=== PATIENT | female | born 1980 | race Caucasian/White ===

== ENCOUNTER → 2016-11-04 | Outpatient (CLI) | payer OTHER ==
[~2016-11-04] MED LIST: CENTRUM SILVER1 EAC4 PO; HYDROCODONE-AP1 EAC6 PO; IBUPROFEN 200200 M1 PO
== END ==
LOC: CAT 16:09
DX: R10.11 Right upper quadrant pain (principal); K44.9 Diaphragmatic hernia without obstruction or gangrene; R16.2 Hepatomegaly with splenomegaly, not elsewhere classified

== ENCOUNTER 2017-03-30 05:26 | Inpatient (IN) | payer OTHER ==
[~2017-03-30] VITALS: Ht 160 cm; Wt 113.4 kg
--- NOTE | ~2017-03-30 | O ---
[facility] [place] [address] OPERATIVE REPORT Name: CURRENT,ISAIAH PERSAUD Room #: 439-P [facility] M.R.#: [id number] Admission: 03/30/17 Attend Phys: Beto Crockett MD, Discharge: 03/31/17 Date of : 84 Report #: [id number] THIS REPORT FOR: //name// CC: Beto Arredondo DATE OF SERVICE: 03/30/2017 PREOPERATIVE DIAGNOSES: 1. Type 3 paraesophageal hernia. 2. Gastroesophageal reflux disease. 3. Hypertension. 4. Obesity. POSTOPERATIVE DIAGNOSES: 1. Type 4 paraesophageal hernia. 2. Gastroesophageal reflux disease. 3. Hypertension. 4. Obesity. PROCEDURES PERFORMED: 1. Laparoscopic repair of a type 4 paraesophageal hernia with cruroplasty and biomesh buttressing. 2. Laparoscopic placement of a LINX antireflux device. 3. Thorough esophagogastroduodenoscopy (EGD). SURGEON: Beto Crockett M.D. AGRI BUSINESS AGENT: John Lock M.D. ANESTHESIA: General endotracheal anesthesia. ESTIMATED BLOOD LOSS: Minimal (less than 10 mL). COMPLICATIONS: None appreciated. SPECIMENS: None. INDICATIONS: The patient is a 36-year-old female, with significant complaints of longstanding epigastric abdominal pain with dysphagia type symptoms, who has already undergone a laparoscopic cholecystectomy for biliary dyskinesia. As a part of the patient's workup, she underwent a CT scan of the abdomen and pelvis which showed a moderately large type 3 paraesophageal hernia, containing half of her stomach within the distal mediastinum. The patient has since undergone a thorough preoperative workup including an upper GI swallow and EGD with Soto pH study, as well as esophageal manometry, which all showed [facility] [address] [place] [address] OPERATIVE REPORT Name: CURRENT,ISAIAH PERSAUD Room #: 439-P [facility] M.R.#: [id number] Admission: 03/30/17 Attend Phys: Beto Crockett MD, Discharge: 03/31/17 Date of : 84 Report #: [id number] normal esophageal motility, as well as the presence of a large type 3 paraesophageal hernia and significant GERD. As such, indication was for definitive repair today and placement of the LINX antireflux device for symptomatic control of her medically recalcitrant disease process. DESCRIPTION OF PROCEDURE: After explaining the risks, benefits, and alternatives of the procedure with the patient in detail in the preoperative holding area and obtaining written consent, the patient was brought to the operating room and placed supine on the operating room table. After conducting a thorough timeout procedure verifying correct patient and procedure, the patient was given general endotracheal anesthesia. Once adequate anesthesia was obtained, her SCDs were hooked up to the pneumatic compression device. She was given a preoperative dose of antibiotics in line with the SCIP protocol. The patient's abdomen was prepped and draped in the standard surgical sterile fashion after positioning her in the low lithotomy position with her legs in the Yellofin stirrups. I began the procedure by anesthetizing the skin in the right upper quadrant and midclavicular line in a subcostal location with 5 mL of 0.5% Marcaine with epinephrine, and I had created a small skin lele using #15 bladed scalpel. I utilized the 5 mm Visiport which was placed over 0 degree 5 mm laparoscope, to gain entry into the abdomen through this incision site. Once intra-abdominal access was verified visually, the obturator for the trocar and laparoscope were both removed, and the abdomen was insufflated to 15 mmHg using carbon dioxide gas. The laparoscope was changed to a 5-mm 30-degree laparoscope, which was reintroduced through this trocar. The entire abdomen was evaluated to ensure no injury upon entry, and no pathology outside of the hiatal hernia in question. We saw evidence of half the stomach in the distal mediastinum, as well as omentum contained within that region, consistent with a type 4 paraesophageal hernia. I now placed three working trocars in the patient's left abdomen. A 5 mm port was placed 2 cm superior to the umbilicus and 2 cm to the patient's left, a 12 mm port was placed 5 cm lateral to that, and a final 5 mm port was placed in the extreme left lateral flank. All three additional ports were placed under direct vision, after anesthetizing the skin at each location with 5 mL of 0.5% Marcaine with epinephrine, and I had created appropriately sized skin nicks using #15 bladed scalpel. The laparoscope was changed to a 5 mm port, just to the left of the patient's umbilicus, and she was placed in steep reverse Trendelenburg position. I now placed a Maru liver retractor in the subxiphoid location by anesthetizing the skin at that location with 5 mL of 0.5% Marcaine with epinephrine, and I had created small skin lele using #15 bladed scalpel. I used the obturator from the 5 mm port to penetrate the fascia at this level and then maneuvered the Maru through this defect, where it was positioned up under the left lobe of the liver and was held up against the posterior aspect of the anterior abdominal wall. This was fixed into position at this location using the [employer] Captain device to stabilize it. We now had complete access to the stomach and hiatal region. Gentle manual traction was now placed in an inferior fashion on the stomach to deliver this back into the intraabdominal location. In addition, a large amount of omentum [facility] [address] [place] [address] OPERATIVE REPORT Name: CURRENT,ISAIAH PERSAUD Room #: 439-P [facility] M.R.#: [id number] Admission: 03/30/17 Attend Phys: Beto Crockett MD, Discharge: 03/31/17 Date of : 84 Report #: [id number] was contained within the mediastinum, consistent with a type 4 paraesophageal hernia. Once all of this was reduced back into the abdomen, I opened the pars flaccida using Harmonic scalpel and was able to identify the base of the right rajan. I dissected up the right rajan anteriorly with Harmonic scalpel for hemostasis. The stomach was then retracted to the patient's right lateral aspect, and I dissected up the left rajan in similar fashion to all the way, staying well away from all gastric and esophageal tissues to prevent injury from thermal burn. Once I had dissected up the left rajan, the stomach was retracted back to the left side, and was able to create a retroesophageal passage way from the patient's right to left side, using a laparoscopic grasper. A Shravan drain was pulled through this window and the tails of this Shravan were mated anteriorly, which would then be used as a handle to avoid actual grasping of any the gastric or esophageal tissues to prevent injury. I now carried out an extensive mediastinal dissection, taking down all of the mediastinal adhesions with Harmonic scalpel for hemostasis. All of these adhesions were attempting to cause the stomach and esophagus to retract back up into the mediastinum. Once these were all taken down, we had 3 cm of intra-abdominal esophagus that was not under tension or traction to attempt to retract back into the mediastinum. The esophageal tissues were elevated anteriorly, and I now proceeded to repair the hiatal defect. This cruroplasty was performed using several sutures of 0 Surgidac on the EndoStitch device posteriorly to bring the crural pillars closed to recreate the slit valve of the lower esophageal sphincter complex without creating undue tightness. Once we are satisfied with this repair, I proceeded to utilize a piece of Strattice biologic mesh that measured 6 x 8 cm in dimension to act as a buttress for this repair. After appropriate hydrogen, a U-shaped notch was cut out of the mesh, and it was maneuvered through the retroesophageal window, where it was then anchored to the crura using sutures of 0 Surgidac, as well as 10 mL of Tisseel on the Duplospray device. This was accomplished by folding down the corners of the mesh and spraying the Tisseel directly on the diaphragm, and then replacing the mesh into position. This gave us an excellently oriented buttressed repair with biologic mesh of our cruroplasty for the hiatal repair. We now turned our attention to placement of the LINX antireflux device. The Shravan drain was removed and a window was made between the posterior vagus nerve and the esophagus using laparoscopic graspers for blunt dissection. The [place] drain was then pulled through this window, and the laparoscopic sizing tool, was now utilized in standard fashion, which identified size 15 device as the appropriate size for this patient. When it was sized, we ensured ourselves that there were no NG tubes or other devices within the esophagus, and there was no traction being placed on the esophagus from the Shravan drain whatsoever. I then placed the appropriate size device in to the abdomen, which was then passed through the window posterior to the esophagus, but anterior to the posterior vagus nerve and then proceeded to mate the ends of the LINX device to complete the bracelet. This was done by ensuring that one window was present in the clasped beads as per standard protocol. A confirmatory tug was performed, and we are satisfactory with the result. The sutures from the device were then cut and removed entirely, and the [facility] [address] [place] [address] OPERATIVE REPORT Name: CURRENT,ISAIAH PERSAUD Room #: 439-P [facility] M.R.#: [id number] Admission: 03/30/17 Attend Phys: Beto Crockett MD, Discharge: 03/31/17 Date of : 84 Report #: [id number] drain was removed. I now proceeded to perform a thorough EGD, utilizing the SpeedDaten upper endoscope. We were able to intubate the oropharynx, which was traversed down the straight esophagus, past the hiatal repair, and easily intubating the gastric lumen through the LINX device. A retroflexion view of the scope showed no further evidence of a hiatal hernia, and the extrinsic compression of the LINX device appeared appropriately seated. The stomach was fully desufflated. The EGD scope was removed and readvanced on 5 separate occasions to ensure easy passage through the hiatal repair, as well as the LINX device. The EGD scope was then removed via the oropharynx, passed off the field, and I proceeded to rescrub and enter the operative field once again. A final evaluation of the intra-abdominal domain showed complete hemostasis throughout. We had excellent orientation of the LINX device. I now removed the Maru liver retractor, and the liver was healthy and uninjured. I then closed the 12 mm fascial incision using 0 PDS suture on a Zia-Juan needle under direct vision. All ports were now removed under direct vision. The abdomen was fully desufflated. 4-0 Monocryl was used in a standard subcuticular fashion for all skin incisions, and Dermabond glue was applied to all skin wounds. At the end of the procedure, all instrument, needle, and sponge counts were correct. The patient tolerated the procedure without incident, was awakened in the operating room and transitioned to the recovery room in stable condition with no apparent complications. <ELECTRONICALLY SIGNED> By: Beto Crockett MD, FACS 03/31/17 [id number] Beto Crockett MD, FACS /nt
[~2017-03-30 05:26] MED LIST changes: +INDERAL60 MG PO
[2017-03-30 08:21] LABS: HEMATOCRIT 39.8 % (37.0-47.0); HEMOGLOBIN 13.8 gm/dL (12.0-15.0)
[2017-03-30 08:54] VITALS: BP 137/76
[2017-03-30 14:00] VITALS: BP 106/64
[2017-03-30 16:00] VITALS: BP 111/56
[2017-03-30 21:30] VITALS: BP 108/50
[2017-03-31 05:30] VITALS: BP 102/50
[2017-03-31 06:07] LABS: HEMOGLOBIN 11.9 gm/dL (12.0-15.0); MCH 29.6 pg (26.0-34.0); MCV 84.7 fL (80.0-100.0); RBC 4.01 mil/uL (4.20-5.00); RDW 13.8 % (10.5-14.5); WBC 12.6 thou/uL (4.0-11.0)
[2017-03-31 06:16] LABS: CALCIUM 8.4 mg/dL (8.5-10.1)
[2017-03-31 08:59] VITALS: BP 103/54
[2017-03-31 10:51] VITALS: BP 103/54
[2017-03-31] MEDS ORDERED: HYDROCODONE-ACE15 ML PO (11:13)
[2017-03-31] MEDS ORDERED: ZOFRAN ODT4 MG DISSOLVE (11:14)
== END 2017-03-31 12:46 | disposition home or self-care (01) | DRG 327 ==
LOC: TBA 05:26 → OR 05:26 → 4S 14:29 → OR 14:52 → 4S 03-31 12:46
PROVIDERS: Surgery
PROC: 0DJ08ZZ Inspection of Upper Intestinal Tract, Via Natural or Artificial Opening Endoscopic (ICD-10-PCS; principal; 2017-03-30)
PROC: 0BUR4JZ (ICD-10-PCS; principal; 2017-03-30)
PROC: 0BUS4JZ (ICD-10-PCS; principal; 2017-03-30)
PROC: 0DV44CZ Restriction of Esophagogastric Junction with Extraluminal Device, Percutaneous Endoscopic Approach (ICD-10-PCS; principal; 2017-03-30)
DX: K21.9 Gastro-esophageal reflux disease without esophagitis (principal); Z68.41 Body mass index [BMI] 40.0-44.9, adult; I10 Essential (primary) hypertension; E66.01 Morbid (severe) obesity due to excess calories; G47.33 Obstructive sleep apnea (adult) (pediatric); K44.9 Diaphragmatic hernia without obstruction or gangrene; Z88.0 Allergy status to penicillin; Z88.6 Allergy status to analgesic agent; Z88.2 Allergy status to sulfonamides; Z90.49 Acquired absence of other specified parts of digestive tract; Z82.49 Family history of ischemic heart disease and other diseases of the circulatory system; Z82.3 Family history of stroke; Z83.3 Family history of diabetes mellitus
CPT/HCPCS: 10102; 50010; 50101; 50249; 50386; 50555; 50558; 50962; 51437; 52182; 52265; 53307; 54022; 54118; 54124; 55326; 55430; 56462; 56525; 56526; 57092; 62110; 62900; 70005

== ENCOUNTER → 2017-10-28 | Outpatient (CLI) | payer OTHER ==
[~2017-10-28] MED LIST changes: +HYDROCODONE-ACE15 ML PO; +ZOFRAN ODT4 MG DISSOLVE
== END ==
LOC: CAT 08:44
DX: R10.32 Left lower quadrant pain (principal); M48.061 Spinal stenosis, lumbar region without neurogenic claudication; Z90.49 Acquired absence of other specified parts of digestive tract

== ENCOUNTER → 2018-07-19 | Outpatient (CLI) | payer OTHER | LOC: CAT 09:52 | DX: M51.37 Other intervertebral disc degeneration, lumbosacral region (principal); R16.1 Splenomegaly, not elsewhere classified; M43.17 Spondylolisthesis, lumbosacral region; I10 Essential (primary) hypertension; K21.9 Gastro-esophageal reflux disease without esophagitis ==

== ENCOUNTER → 2021-04-07 | Outpatient (CLI) | payer OTHER ==
[2021-04-07 09:05] LABS: URINE BILIRUBIN NEGATIVE (Negative); URINE BLOOD NEGATIVE (Negative); URINE CLARITY CLEAR; URINE COLOR YELLOW; URINE GLUCOSE-RANDOM* NEGATIVE (Negative); URINE KETONES NEGATIVE (Negative); URINE NITRITE-REFLEX NEGATIVE (Negative); URINE PROTEIN (DIPSTICK) NEGATIVE (Negative); URINE SPECIFIC GRAVITY >= 1.030 (1.005-1.035); URINE UROBILINOGEN 0.2 E.U./dl (0.2-1.0)
[2021-04-07 09:07] LABS: URINE LEUKOCYTES-REFLEX 1+ (Negative)
[2021-04-07 09:11] LABS: ABSOLUTE NEUTROPHILS 4.4 thou/uL (1.4-8.2); BASOPHILS 0.8 % (0.0-2.0); EOSINOPHILS 1.5 % (0.0-3.0); HEMATOCRIT 38.9 % (37.0-47.0); HEMOGLOBIN 13.4 gm/dL (12.0-15.0); LYMPHOCYTES 29.5 % (24.0-44.0); MCH 29.9 pg (26.0-34.0); MCHC 34.5 g/dL (28.0-37.0); MCV 86.7 fL (80.0-100.0); MONOCYTES 7.9 % (1.0-8.0); PLATELET COUNT 289 thou/uL (150-400); POLYS 60.3 % (36.0-66.0); RBC 4.49 mil/uL (4.20-5.00); RDW 13.5 % (10.5-14.5); WBC 7.3 thou/uL (4.0-11.0)
[2021-04-07 09:23] LABS: ALBUMIN 3.6 g/dL (3.4-5.0); ANION GAP 7 mmol/L (7-16); BUN 9 mg/dL (7-18); CALCIUM 8.6 mg/dL (8.5-10.1); CHLORIDE 102 mmol/L (98-107); CHOLESTEROL 189 mg/dL (<200); CO2 29 mmol/L (21-32); CREATININE 0.9 mg/dL (0.6-1.0); GLUCOSE 107 mg/dL (74-106); HDL CHOLESTEROL 30 mg/dL (>40); LDL CHOLESTEROL 126 mg/dL (<100); POTASSIUM 4.2 mmol/L (3.5-5.1); SGOT 14 U/L (15-37); SGPT 24 U/L (30-65); SODIUM 138 mmol/L (136-145); TC:HDL 6.3 Ratio (Not establshd); TOTAL BILIRUBIN 0.5 mg/dL (0.2-1.0); TOTAL PROTEIN 7.3 g/dL (6.4-8.2); TRIGLYCERIDE 166 mg/dL (<150); VLDL 33 mg/dL (<40)
[2021-04-07 09:39] LABS: BACTERIA-REFLEX 1-9 Few /HPF (None Seen); CASTS None Seen /LPF (None Seen); CRYSTALS None Seen /LPF (None Seen); SQUAMOUS 0-3 Few /LPF (0-3); URINE RBC 1-2 Rare /HPF (NONE SEEN); URINE WBC-REFLEX 0-5 Rare /HPF (0-5)
== END ==
LOC: LAB 08:27
PROVIDERS: ATTEND Nurse Practitioner
DX: Z00.00 Encounter for general adult medical examination without abnormal findings (principal)